=== PATIENT | male | born 1975 | race Caucasian/White ===

== ENCOUNTER 2021-01-21 01:02 | Emergency (ER) | payer MEDICAID ==
[~2021-01-21] VITALS: Ht 185.4 cm; Wt 104.5 kg
[2021-01-21 01:15] VITALS: BP 145/85
[2021-01-21] MEDS ORDERED: aspirin 81mg tab.chew PO ONE (01:15)
[2021-01-21 01:38] LABS: BASOPHILS # (AUTO) 0.1 X10'3 (0-0.2); BASOPHILS % (AUTO) 0.6 % (0-1); EOSINOPHILS # (AUTO) 0.2 X10'3 (0-0.9); EOSINOPHILS % (AUTO) 1.7 % (0-6); LYMPHOCYTES # (AUTO) 2.7 X10'3 (1.1-4.8); LYMPHOCYTES % (AUTO) 27.9 % (21-51); MONOCYTES # (AUTO) 0.7 X10'3 (0-0.9); MONOCYTES % (AUTO) 7.6 % (2-12); NEUTROPHILS # (AUTO) 6.1 X10'3 (1.8-7.7); NEUTROPHILS % (AUTO) 62.2 % (42-75); WHITE BLOOD COUNT 9.7 X10'3 (4.5-11.0)
[2021-01-21 01:59] LABS: ALBUMIN 3.5 G/DL (3.4-5.0); ALKALINE PHOSPHATASE 100 IU/L (46-116); ANION GAP 11 (8-16); BILIRUBIN,TOTAL 1.1 MG/DL (0.1-1.0); BLOOD UREA NITROGEN 22 MG/DL (7-18); BUN/CREATININE RATIO 18.3 (5.4-32.0); CALCIUM 8.4 MG/DL (8.5-10.1); CHLORIDE 104 MMOL/L (99-107); SODIUM 140 MMOL/L (135-145); eGFR 65 ML/MIN
[2021-01-21] MEDS ORDERED: FURO20TA4 PO (02:13)
[2021-01-21] MEDS ORDERED: LISI-790 PO (02:13)
[2021-01-21] MEDS ORDERED: CARV6.253 PO (02:13)
[2021-01-21 02:22] LABS: HEMOGLOBIN 14.6 g/dl (14.0-17.9); RED BLOOD COUNT 4.28 X10'6 (4.70-6.10)
[2021-01-21 02:23] LABS: HEMATOCRIT 41.2 % (42.0-52.0); MEAN CORPUSCULAR HEMOGLOBIN 34.1 PG (27.0-31.0); MEAN CORPUSCULAR HGB CONC 35.5 g/dL (33.0-36.5); MEAN CORPUSCULAR VOLUME 96.3 FL (78-98)
[2021-01-21 02:24] LABS: PLATELET COUNT 272 X10'3 (140-440)
[2021-01-21 02:31] LABS: ALANINE AMINOTRANSFERASE 35 U/L (12-78); ALBUMIN/GLOBULIN RATIO 0.8 (1.1-1.5); ASPARTATE AMINO TRANSFERASE 28 U/L (10-37); GLUCOSE 115 MG/DL (70-104); POTASSIUM 3.8 MMOL/L (3.5-5.1); TOTAL PROTEIN 7.7 G/DL (6.4-8.2)
== END 2021-01-21 03:39 | disposition home or self-care (01) ==
LOC: ER 01:04
DX: R07.89 Other chest pain (principal); R06.02 Shortness of breath; I50.9 Heart failure, unspecified; F17.200 Nicotine dependence, unspecified, uncomplicated; F12.90 Cannabis use, unspecified, uncomplicated; F15.90 Other stimulant use, unspecified, uncomplicated; Z79.899 Other long term (current) drug therapy
CPT/HCPCS: 36415; 71045; 80053; 83735; 83880; 84484; 85025; 93005; 99285